=== PATIENT | female | born 1970 | race African-American/Black ===

== ENCOUNTER 2022-12-04 11:00 | Emergency (ER) | payer MEDICAID ==
[~2022-12-04] VITALS: Ht 162.6 cm; Wt 97.7 kg
[2022-12-04] MEDS ORDERED: LIDOCAINE 5% PATCH TOP SCH (11:30)
[2022-12-04] MEDS ORDERED: BACLOFEN 10MG TABLET PO ONE (11:30)
[2022-12-04] MEDS ORDERED: NAPROXEN 250MG TABLET PO ONE (11:30)
[2022-12-04] MEDS ORDERED: LIDO700A15 TP (12:09)
[2022-12-04] MEDS ORDERED: NAPR-677 MT (12:09)
[2022-12-04] MEDS ORDERED: BACL-141 MT (12:09)
[2022-12-04 12:42] VITALS: BP 142/98
== END 2022-12-04 12:49 | disposition home or self-care (01) ==
LOC: ER 11:00
DX: S13.4XXA Sprain of ligaments of cervical spine, initial encounter (principal); M25.512 Pain in left shoulder; Z00.00 Encounter for general adult medical examination without abnormal findings; Z86.39 Personal history of other endocrine, nutritional and metabolic disease; V79.9XXA Bus occupant (driver) (passenger) injured in unspecified traffic accident, initial encounter; Y93.89 Activity, other specified; Y92.89 Other specified places as the place of occurrence of the external cause; Y99.8 Other external cause status
CPT/HCPCS: 73030; 99283; A4565

== ENCOUNTER 2024-02-01 18:40 | Emergency (ER) | payer MEDICAID ==
[~2024-02-01] VITALS: Ht 157.5 cm; Wt 60.0 kg
[~2024-02-01 18:40] MED LIST: BACL-141 MT; LIDO700A15 TP; NAPR-677 MT
[2024-02-01 18:45] VITALS: O2SAT 100
[2024-02-01] MEDS: KETOROLAC 15MG/ML VIAL IM ONE (20:02)
[2024-02-01] MEDS ORDERED: LIDO700A15 TP (20:04)
[2024-02-01] MEDS ORDERED: NAPR-1176 MT (20:04)
[2024-02-01 20:43] VITALS: BP 127/81; PULSE 84; RESP 18; TEMP 98.5
== END 2024-02-01 20:43 | disposition home or self-care (01) ==
LOC: ER 18:46
DX: M25.572 Pain in left ankle and joints of left foot (principal); E03.9 Hypothyroidism, unspecified
CPT/HCPCS: 99283; 73610; 96372; J1885